=== PATIENT | male | born 1970 | race Caucasian/White ===

== ENCOUNTER 2020-08-11 08:13 | Outpatient (REF) | payer MEDICAID, SELFPAY ==
[2020-08-11 13:47] LABS: HCT 38.6 % (40.0-50.0); HGB 13.2 g/dL (13.5-17.5); MCH 30.6 pg (27.0-33.0); MCHC 34.2 % (32.0-36.0); MCV 89.4 fL (80-95); MPV 9.5 fL (8.0-11.0); Platelet Count 248 10^3/uL (130-400); RBC 4.32 10^6/uL (4.36-5.78); RDW 11.7 % (11.8-14.1); RDW-SD 37.8 fL; WBC 8.01 10^3/uL (4.4-10.8)
[2020-08-11 14:11] LABS: Anion Gap 9.2 mmol/L (3-11); BUN 28 mg/dL (7-18); CO2 26.8 mmol/L (21.0-32.0); CREATININE 1.6 mg/dL (0.70-1.30); Calcium 9.1 mg/dL (8.5-10.1); Calculated LDL 76 mg/dL (<100); Chloride 105 mmol/L (98-107); Cholesterol 123 mg/dL (<200); Estimated GFR 46.37 (mL/min/1.73m2); Glucose 99 mg/dL (74-106); HDL Cholesterol 29 mg/dL (40-60); Sodium 141 mmol/L (136-145); TSH 5.47 uIU/mL (0.36-3.74); Triglyceride 90 mg/dL (<150)
[2020-08-11 14:29] LABS: FREE T4 0.75 ng/dL (0.76-1.46)
== END 2020-08-11 08:14 | disposition home or self-care (01) ==
LOC: LBN 08:13
PROVIDERS: PCP General Practice; Visit Provider Physician Assistant
DX: R53.83 Other fatigue (principal); Z13.220 Encounter for screening for lipoid disorders; Z00.00 Encounter for general adult medical examination without abnormal findings
CPT/HCPCS: 80048; 80061; 85027; 84439; 84443

== ENCOUNTER 2020-10-05 18:20 | Outpatient (REF) | payer MEDICAID, SELFPAY ==
[2020-10-05 15:11] LABS: TSH 0.45 uIU/mL (0.36-3.74)
== END 2020-10-05 18:21 | disposition home or self-care (01) ==
LOC: NCHCN 18:20
PROVIDERS: PCP Physician Assistant; Visit Provider Physician Assistant
DX: E03.9 Hypothyroidism, unspecified (principal)
CPT/HCPCS: 84443

== ENCOUNTER 2020-10-08 10:03 | Day surgery (SDC) | payer MEDICAID, SELFPAY ==
--- NOTE | 2020-10-07 15:43 | PDOC.DSDIS_ITS ---
Discharge Plan Disposition Patient Disposition: HOME Condition: Good Discharge Details Reason For Visit: colon scope Attending Provider: Tish Giordano Primary Care Provider: Jorje Loja Home Meds and New Rx's Prescriptions: Continued levothyroxine 50 mcg tablet 50 mcg PO DAILY RF: 0 multivitamin Tablet 1 tab PO DAILY RF: 0 calcium carbonate-vitamin D2 600 mg calcium- 200 unit Tablet 1 tab PO DAILY RF: 0 Discontinued bisacodyl [Dulcolax (bisacodyl)] 5 mg tablet,delayed release (DR/EC) 5 mg PO ONCE Qty: 4 RF: 0 polyethylene glycol 3350 17 gram/dose powder 238 g PO ONCE Qty: 238 RF: 0 Discharge Instructions Additional Instructions: DSU Colonoscopy Post- Op Instructions Instructions for Everyone who is given Anesthesia: For your safety, please do the following for the next twenty-four (24) hours: *Do Not operate a motor vehicle (car, truck, motorcycle, etc.) *Do Not drink alcoholic beverages or use any recreational drugs for the first 24 hours or while taking pain medications. The medications in your body may have a reaction that can be dangerous. *Do Not make any important decisions or sign any important papers. Findings:x1 small polyp Follow up: My office will send a letter in 2 to 3 weeks, detailing as to what type of polyp that was, and when to repeat your colonoscopy. -If you continue to have problems with constipation, I recommend you start a fiber product such as Metamucil. 1. No lifting over 20 pounds or strenuous activity for the first 24 hours after your procedure. After 24 hours there are no restrictions on your activity but you may feel fatigued for a few days. 2. After you arrive home you may have a light meal and return to your normal diet as you can tolerate it without feeling sick to your stomach. 3. You may have a bloated, gaseous feeling in your belly (abdomen) after a colonoscopy. Passing gas and belching will help. Walking or lying down on your left side with your knees flexed may relieve the discomfort. Call the office at [phone] (Office) or [phone] (Hospital) right away if you notice any of the following: a.Vomiting of blood or ?coffee ground stools?. b.Rectal bleeding 1Tbsp, blood clots or continuous bleeding. c.Severe belly (abdominal) pain. d.A hard distended belly (abdomen) and an inability to pass gas. 4. Please don?t expect to have a normal BM (bowel movement) for 2-3 days after your procedure. 5. If there are questions regarding the findings of your procedure, please contact your doctor 6. If you are unable to contact your doctor with a problem, contact the hospital at [phone]. 7. Continue all your regular medications unless directed otherwise. I understand the above instructions and have no questions. Signature of Patient or Adult Escort Name of Responsible Adult Escort Signature of Nurse Date/Time Discharge Orders Discharge Orders: Discharge Order (Routine); Ordered 10/07/20 Ordered By: Tish Giordano DS: Diagnosis Discharge Diagnosis (1) Colon polyp: Status: Acute (2) Family history of malignant neoplasm of colon in relative diagnosed when older than 50 years of age: Status: Acute
--- NOTE | 2020-10-07 15:43 | W.COLOREPORT ---
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 Monitors were applied and a time out was done. The patients name, date of , procedure, allergies to medications and metal in their body was reviewed. The patient was then sedated. Once sedated and comfortable a rectal exam was done. External exam was normal. Internal exam revealed a normal sphincter tone and no palpable masses. The scope was then introduced and retrofelexed. No internal hemorrhoids were identified. The scope was then advanced to the cecum without difficulty. The TI and appendiceal orifice were identified. The prep was adequate. The scope was then slowly retracted over minutes back into the rectum. He has a flat, < 5 mm polyp that was at 40 cm, and was removed with a cold biting forcep. There are no diverticula or AVMs noted. He does have a very tortuous colon.. The scope was removed and the patient was woken up and taken back to Same day surgery in stable condition. The patient tolerated the procedure well and there were no immediate complications. Follow up: The patient should follow up in 7-10yrs, path pd, unless they develop changes in bowel habits or other new gastrointestinal complaints.
[2020-10-08 10:15] VITALS: BP 122/69; PULSE 91; RESP 18; TEMP 36.3; O2SAT 98
--- NOTE | 2020-10-08 10:26 | ANES.PREOP_ITS ---
General Info Date of Service Date Performed: 10/08/20 Height: 5 ft 8 in Weight: 70 kg Body Mass Index (BMI): 23.4 Surgical Procedure: Operation Date: 10/08/20 10:35 Proposed Procedures Side Surgeon p Colonoscopy Tish Giordano DO Meds Allergies and Home Medications Allergies Allergy/AdvReac Type Severity Reaction Status Date / Time No Known Allergies Allergy Verified 10/08/20 10:20 Home Medication Medication Instructions Recorded bisacodyl 5 mg tablet,delayed 5 mg PO ONCE #4 tab 10/01/20 release levothyroxine 50 mcg tablet 50 mcg PO DAILY 10/01/20 multivitamin 1 tab PO DAILY 10/01/20 polyethylene glycol 3350 17 238 g PO ONCE #238 g 10/01/20 gram/dose oral powder calcium carbonate-vitamin D2 1 tab PO DAILY 10/06/20 [Calcium + Vitamin D] Current Visit Medications: Current Medications Generic Name Dose Route Start Last Admin Trade Name Freq PRN Reason Stop Dose Admin Hyoscyamine Sulfate 0.125 mg 10/07/20 15:42 Hyoscyamine 0.125 Mg Sl/Oral/Chew SL DIRECTED PRN Ringer's Solution 1,000 mls @ 80 mls/hr 10/08/20 06:00 IV 11/06/20 23:59 [facility] IV Miscellaneous Supplies 1 each 10/08/20 06:00 Iv Access IV 11/06/20 23:59 DIRECTED JUAN JOSÉ Ondansetron HCl 4 mg 10/07/20 15:42 Ondansetron 4 Mg/2 Ml Vial IVP Q4H PRN PRN Nausea / Vomiting Sodium Chloride 0 ml 10/08/20 06:00 Normal Saline Flush 10 Ml Syr IV 11/06/20 23:59 PRN PRN Sodium Chloride 0 ml 10/08/20 06:00 Normal Saline 10 Ml Vial IJ 11/06/20 23:59 DIRECTED PRN Sterile Water 0 ml 10/08/20 06:00 Water,Injection,Sterile 10 Ml Vial IJ 11/06/20 23:59 DIRECTED PRN PFSH Active Problems Active Problems: Problem Status Onset Code Encounter for screening colonoscopy Z12.11 Neoplasm of unspecified behavior of bone, soft tissue, and skin D49.2 Chronic fatigue R53.82 Gastrointestinal symptom R19.8 Anxiety F41.9 Medical History Medical History Anxiety Chronic fatigue Gastrointestinal symptom Hypothyroidism Neoplasm of unspecified behavior of bone, soft tissue, and skin Tobacco Smoking/Tobacco Use Status: Never Alcohol Alcohol Intake: never Substance Use Substance use: Never Substance use type: does not use Vital Signs and Lab Results Vital Signs Most Recent Vital Signs in EMR: Most Recent Vital Signs Temp Pulse Resp BP Pulse Ox 36.3 C L 91 H 18 122/69 98 10/08/20 10:15 10/08/20 10:15 10/08/20 10:15 10/08/20 10:15 10/08/20 10:15 Lab Results Blood Type / Crossmatch: No Data to Display Complete Blood Count: No Data to Display Complete Metabolic Panel: No Data to Display Liver Function Panel: No Data to Display Coagulation Panel: No Data to Display Cardiac Panel: No Data to Display Arterial Blood Gas: No Data to Display Venous Blood Gas: No Data to Display Pancreas Panel: No Data to Display Thyroid Panel: Thyroid Stimulating Hormone (TSH) 0.45 uIU/mL (0.36-3.74) 10/05/20 10:20 10/05/20 Infectious Disease: No Data to Display Blood Cultures: No Data to Display Toxicology Panel: No Data to Display Anesthesia Assessment and Plan Anesthesia History Personal History: No History of General Anesthesia Family History: No Family History of Anesthesia Complications Exercise Tolerance Exercise Tolerance: Metabolic Equivalents>4 Pertinent Negatives Pertinent Negatives: No Symptoms of GERD, No Major Cardiovascular Symptoms or Complaints, No Major Pulmonary Symptoms or Complaints and No History of CVA/TIA Cardiac & Pulmonary Exam Cardiac Exam: Normal S1/S2 Heart Sounds Pulmonary Exam: Clear Bilateral Breath Sounds Airway Exam Known Difficult Airway: No Mallampati Class: 2 Mouth Opening: Normal (> 3cm) Thyromental Distance: Greater than 3 cm Neck Range of Motion: Full ROM Neck Circumference: Normal Teeth Condition: Normal Dentition ASA Classification ASA Score: ASA 2 Emergency Case?: No NPO Status NPO Status: NPO Clears >2 hours, Solids >8 hours Anesthesia Plan Resuscitation Status: Full Code Anesthesia Technique: General Anesthesia Airway Planned: Natural Airway Monitors Used: Standard Monitors
[2020-10-08 10:29] VITALS: BMI 23.4
[2020-10-08] MEDS: Lactated Ringers 1,000 ML 80 ML IV (10:33)
--- NOTE | 2020-10-08 11:22 | BOWEL_PTH ---
PATIENT: Rafat Palomino LOC: [facility] U#:[id number] AGE/SX: 50/M ROOM: RE10/08/[address]: Tish Giordano : 1970 BED: DIS: 10/08/2020 SPEC #: [id number] RECD: 10/08/20 12:33 STATUS: MICHAEL REQ #: [id number] CARLOS: 10/08/20 11:[address]: Tish Giordano DEPT: Surgical Specimen RECD BY: Maggie Shaver ENTERED: 10/08/20 12:33 SP TYPE: Bowel OTHR DR: Jorje Loja Tissues: 1 - BIOPSY BOWEL Procedures: GROSS AND MICRO LEVEL 4 Comments: [id number]
[2020-10-08 11:35] VITALS: BP 96/64; PULSE 62; RESP 14; TEMP 36; O2SAT 97
[2020-10-08 12:04] VITALS: BP 104/70; PULSE 66; RESP 16; TEMP 36.4; O2SAT 99
--- NOTE | 2020-10-08 12:12 | W.ANESPOSTOP ---
Postoperative Evaluation Date, Time and Location Date Performed: 10/08/20 Time Performed: 11:58 Patient Location: Day Surgery Unit Vital Signs Most Recent Imported Vital Signs: Most Recent Vital Signs Temp Pulse Resp BP Pulse Ox 36.4 C L 66 16 104/70 99 10/08/20 12:04 10/08/20 12:04 10/08/20 12:04 10/08/20 12:04 10/08/20 12:04 Pain Score Most Recent Pain Score: Most Recent Pain Score Pain Level 0 10/08/20 12:04 Assessment Mental Status: Awake (Alert & Oriented to Patient Baseline) Airway and Respiratory Function: Patent airway with normal (patient baseline) respiratory exam Cardiovascular Function: Hemodynamically Stable Hydration Status: Adequately Hydrated Nausea & Vomiting: No Nausea or Vomiting Pain: Pain is tolerable per patient Peripheral Nerve Block: Patient did not receive a nerve block
== END 2020-10-08 12:45 | disposition home or self-care (01) ==
PROVIDERS: PCP Physician Assistant; Visit Provider Surgery
PROC: 0DJD8ZZ Inspection of Lower Intestinal Tract, Via Natural or Artificial Opening Endoscopic (ICD-10-PCS; CPT 45378; principal; 2020-10-08 10:30)
DX: Z12.11 Encounter for screening for malignant neoplasm of colon (principal); K63.5 Polyp of colon; Z80.0 Family history of malignant neoplasm of digestive organs
CPT/HCPCS: 45380; 88305

== ENCOUNTER 2021-10-07 19:05 | Outpatient (REF) | payer MEDICAID, SELFPAY ==
[2021-10-07 19:41] LABS: Anion Gap 8.4 mmol/L (3-11); BUN 25 mg/dL (7-18); CO2 29.6 mmol/L (21.0-32.0); CREATININE 1.3 mg/dL (0.70-1.30); Calcium 8.8 mg/dL (8.5-10.1); Chloride 105 mmol/L (98-107); Estimated GFR 58.43 (mL/min/1.73m2); Glucose 110 mg/dL (74-106); Sodium 143 mmol/L (136-145); TSH 1.76 uIU/mL (0.36-3.74)
[2021-10-10 09:33] LABS: PSA, Screening 0.7 ng/mL (<=3.5)
== END 2021-10-07 19:06 | disposition home or self-care (01) ==
LOC: NCHCN 19:05
PROVIDERS: PCP Physician Assistant; Visit Provider Physician Assistant
DX: E03.9 Hypothyroidism, unspecified (principal); N28.9 Disorder of kidney and ureter, unspecified; Z12.5 Encounter for screening for malignant neoplasm of prostate
CPT/HCPCS: 80048; 84153; 84443

== ENCOUNTER 2022-06-27 15:55 | Emergency (ER) | payer MEDICAID, SELFPAY ==
[2022-06-27] VITALS (68 sets, daily range): BP systolic 106–135; BP diastolic 66–84; PULSE 72–101; RESP 10–24; TEMP 36.8; O2SAT 93–100
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
[2022-06-27 18:19] LABS: Abs Immature Grans 0.01 10^3/uL (0.0-0.06); Absolute Basophil Count 0.04 10^3/uL (0.0-0.2); Absolute Eosinophil Count 0.19 10^3/uL (0.0-0.7); Absolute Lymphocyte Count 2.98 10^3/uL (1.2-3.4); Absolute Monocyte Count 0.45 10^3/uL (0.1-0.8); Absolute Neutrophil Count 4.58 10^3/uL (1.2-6.7); Basophils % 0.5; Eosinophils % 2.3; HCT 38.5 % (40.0-50.0); HGB 13.6 g/dL (13.5-17.5); Immature Grans % 0.1; Lymphocytes % 36.1; MCH 31.3 pg (27.0-33.0); MCHC 35.3 % (32.0-36.0); MCV 89 fL (80-95); MPV 9.3 fL (8.0-11.0); Monocytes % 5.5; Neutrophils % 55.5; Platelet Count 235 10^3/uL (130-400); RBC 4.35 10^6/uL (4.36-5.78); RDW 11.9 % (11.8-14.1); RDW-SD 38.9 fL; WBC 8.25 10^3/uL (4.4-10.8)
--- NOTE | 2022-06-27 18:32 | NUR.NOTE ---
pts wounds cleaned. small abrasion to left forehead. bleeding well controlled
[2022-06-27 18:34] LABS: ALT 23 U/L (16-63); AST 12 U/L (15-37); Albumin 3.8 g/dL (3.4-5.0); Alkaline Phosphatase 47 U/L (46-116); Anion Gap 7.8 mmol/L (3-11); BUN 21 mg/dL (7-18); Bilirubin, Total 0.3 mg/dL (0.2-1.0); CO2 26.2 mmol/L (21.0-32.0); CREATININE 1.3 mg/dL (0.70-1.30); Chloride 105 mmol/L (98-107); Estimated GFR 66.93 (mL/min/1.73m2); Glucose 145 mg/dL (74-106); Potassium 3.5 mmol/L (3.5-5.1); Sodium 139 mmol/L (136-145); Total Protein 7.4 g/dL (6.4-8.2)
[2022-06-27 18:45] LABS: ETHANOL BLOOD < 3.0 mg/dL (<10)
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
== END 2022-06-27 19:49 | disposition home or self-care (01) ==
PROVIDERS: Emergency Provider Nurse Practitioner Family; PCP Physician Assistant
DX: S02.2XXA Fracture of nasal bones, initial encounter for closed fracture (principal); Y09 Assault by unspecified means; S01.511A Laceration without foreign body of lip, initial encounter; S09.8XXA Other specified injuries of head, initial encounter
CPT/HCPCS: 12011; 36415; 80053; 96374; 99284; 70450; 70486; 72125; 80320; 85025; 85610; 85730

== ENCOUNTER 2023-03-30 08:10 | Outpatient (REF) | payer BC, SELFPAY ==
[2023-03-30 16:37] LABS: Anion Gap 6.4 mmol/L (3-11); BUN 24 mg/dL (7-18); CO2 29.6 mmol/L (21.0-32.0); CREATININE 1.3 mg/dL (0.70-1.30); Calcium 9.3 mg/dL (8.5-10.1); Chloride 106 mmol/L (98-107); Estimated GFR 66.51 (mL/min/1.73m2); Glucose 103 mg/dL (74-106); Potassium 4.2 mmol/L (3.5-5.1); Sodium 142 mmol/L (136-145); TSH 2.79 uIU/mL (0.36-3.74)
== END 2023-03-30 08:11 | disposition home or self-care (01) ==
LOC: NCHCN 08:10
PROVIDERS: PCP Physician Assistant; Visit Provider Physician Assistant
DX: N28.9 Disorder of kidney and ureter, unspecified (principal); E03.9 Hypothyroidism, unspecified
CPT/HCPCS: 80048; 84443

== ENCOUNTER 2024-06-06 12:52 | Outpatient (REF) | payer BC, SELFPAY ==
[2024-06-06 15:50] LABS: FREE T4 0.66 ng/dL (0.76-1.46); TSH 2.89 uIU/mL (0.36-3.74)
[2024-06-06 22:35] LABS: PSA, Screening 0.8 ng/mL (<=3.5)
== END 2024-06-06 12:53 | disposition home or self-care (01) ==
LOC: NCHCN 12:52
PROVIDERS: PCP Physician Assistant; Visit Provider Physician Assistant
DX: Z12.5 Encounter for screening for malignant neoplasm of prostate (principal); E03.9 Hypothyroidism, unspecified
CPT/HCPCS: 84153; 84439; 84443